=== PATIENT | female | born 1980 | race Caucasian/White ===

== ENCOUNTER 2021-06-07 00:27 | Inpatient (IN) | payer BC ==
[~2021-06-07] VITALS: Ht 157.4 cm; Wt 76.4 kg
[~2021-06-07 00:27] MED LIST: ADV 500/50 INH; AVPAK AZITHROM250 MG PO; DULOXETINE HCL60 MG PO; MOTRIN800 MG PO; PREDNISONE20 MG PO; PREDNISONE50 MG PO; PROAIR HFA0.09 MG/AC INH; VIBRAMYCIN100 MG PO
[2021-06-07 00:37] VITALS: BP 179/86
[2021-06-07 01:29] LABS: HEMATOCRIT 43.2 % (37.0-47.0); MEAN CELL VOLUME 90.2 fl (81.0-99.0); MEAN CORPUSCULAR HGB CONC 32.2 g/dl (33.0-37.0); MEAN PLATELET VOLUME 10.3 fl (9.6-12.3); PLATELET COUNT AUTOMATED 257 10*3/uL (130-400); RED BLOOD COUNT 4.79 10*6/uL (4.10-5.10); RED CELL DISTRI WIDTH 13.5 % (0-14.5); WHITE BLOOD COUNT 16.5 10*3/uL (4.8-10.8)
[2021-06-07 01:32] LABS: MANUAL DIFF REFLEX YES
[2021-06-07 01:47] LABS: ALKALINE PHOSPHATASE 97 U/L (45-117); BUN 7 mg/dl (7-24); CHLORIDE 107 mmol/L (98-107); CREATININE 0.72 mg/dL (0.55-1.02); POTASSIUM 3.4 mmol/L (3.5-5.1); SGOT/AST 23 IU/L (3-35); SGPT/ALT 40 U/L (12-78); SODIUM 139 mmol/L (136-145); TOTAL PROTEIN 7.7 gm/dL (6.4-8.2)
[2021-06-07 01:52] LABS: PLATELET SUFFICIENCY LOW (NORMAL); TOTAL CELLS COUNTED 100 #CELLS
[2021-06-07 04:00] VITALS: BP 137/61
[2021-06-07] MEDS ORDERED: GABAPENTIN800 MG PO (04:06)
[2021-06-07] MEDS ORDERED: CYCLOBENZAPRINE10 MG PO (04:07)
[2021-06-07] MEDS ORDERED: METHADONE HYDRO10 MG PO (04:08)
[2021-06-07] MEDS ORDERED: DICLOFENAC SOD75 MG PO (04:09)
[2021-06-07 08:00] VITALS: BP 134/82
[2021-06-07 12:00] VITALS: BP 116/64
[2021-06-07 15:33] VITALS: BP 122/62
[2021-06-07 20:00] VITALS: BP 132/66; BP 151/87
[2021-06-08] VITALS: BP 134/57; BP 152/87
[2021-06-08 06:32] LABS: MEAN CELL VOLUME 92.2 fl (81.0-99.0); MEAN CORPUSCULAR HGB 29.6 pg (27.0-31.0); MEAN CORPUSCULAR HGB CONC 32.1 g/dl (33.0-37.0); PLATELET COUNT AUTOMATED 266 10*3/uL (130-400); RED BLOOD COUNT 4.12 10*6/uL (4.10-5.10); RED CELL DISTRI WIDTH 14.1 % (0-14.5); WHITE BLOOD COUNT 17.7 10*3/uL (4.8-10.8)
[2021-06-08 06:42] LABS: ALKALINE PHOSPHATASE 89 U/L (45-117); BUN 10 mg/dl (7-24); CHLORIDE 111 mmol/L (98-107); CREATININE 0.51 mg/dL (0.55-1.02); SGOT/AST 28 IU/L (3-35); SGPT/ALT 43 U/L (12-78); SODIUM 139 mmol/L (136-145); TOTAL PROTEIN 6.6 gm/dL (6.4-8.2)
[2021-06-08 07:25] LABS: MANUAL DIFF REFLEX YES
[2021-06-08 07:34] LABS: TOTAL CELLS COUNTED 100 #CELLS
[2021-06-08 07:35] LABS: PLATELET SUFFICIENCY NORMAL (NORMAL); POLYCHROMASIA SLIGHT
[2021-06-08 08:00] VITALS: BP 132/85
[2021-06-08 12:00] VITALS: BP 124/86
[2021-06-08 16:00] VITALS: BP 136/79
[2021-06-08 20:00] VITALS: BP 142/88; BP 146/95
[2021-06-09] VITALS: BP 151/93
[2021-06-09 05:47] LABS: BUN 15 mg/dl (7-24); CHLORIDE 107 mmol/L (98-107); CREATININE 0.41 mg/dL (0.55-1.02); POTASSIUM 4.1 mmol/L (3.5-5.1); SODIUM 138 mmol/L (136-145)
[2021-06-09 05:59] LABS: HEMATOCRIT 37.6 % (37.0-47.0); MEAN CELL VOLUME 93.3 fl (81.0-99.0); MEAN CORPUSCULAR HGB 29.5 pg (27.0-31.0); MEAN CORPUSCULAR HGB CONC 31.6 g/dl (33.0-37.0); MEAN PLATELET VOLUME 10.9 fl (9.6-12.3); PLATELET COUNT AUTOMATED 267 10*3/uL (130-400); RED BLOOD COUNT 4.03 10*6/uL (4.10-5.10); WHITE BLOOD COUNT 12.8 10*3/uL (4.8-10.8)
[2021-06-09 06:03] LABS: MANUAL DIFF REFLEX YES
[2021-06-09 07:08] LABS: PLATELET SUFFICIENCY NORMAL (NORMAL); TOTAL CELLS COUNTED 100 #CELLS
[2021-06-09 08:00] VITALS: BP 146/92
[2021-06-09 12:00] VITALS: BP 150/78
[2021-06-09 16:00] VITALS: BP 150/67
[2021-06-09 20:00] VITALS: BP 147/95
[2021-06-10] VITALS: BP 154/105
[2021-06-10 01:00] VITALS: BP 148/86
[2021-06-10 05:47] LABS: BUN 11 mg/dl (7-24); CHLORIDE 103 mmol/L (98-107); CREATININE 0.53 mg/dL (0.55-1.02); POTASSIUM 3.9 mmol/L (3.5-5.1); SODIUM 136 mmol/L (136-145)
[2021-06-10 06:22] LABS: BASO % 0.3 % (0.0-1.0); HEMATOCRIT 39.4 % (37.0-47.0); LYMPH # 0.8 10*3/uL (1.3-4.4); LYMPH % 7.6 % (27.0-41.0); MEAN CELL VOLUME 90.8 fl (81.0-99.0); MEAN PLATELET VOLUME 10.6 fl (9.6-12.3); MONO # 0.5 10*3/uL (0.1-1.0); MONO % 4.9 % (3.0-9.0); NEUT # 8.7 10*3/uL (2.3-7.9); PLATELET COUNT AUTOMATED 309 10*3/uL (130-400); RED BLOOD COUNT 4.34 10*6/uL (4.10-5.10); RED CELL DISTRI WIDTH 13.2 % (0-14.5); WHITE BLOOD COUNT 10.2 10*3/uL (4.8-10.8)
[2021-06-10 08:00] VITALS: BP 154/88
[2021-06-10 12:00] VITALS: BP 158/97
[2021-06-10 16:00] VITALS: BP 138/85
[2021-06-10 20:00] VITALS: BP 148/90; BP 153/106
[2021-06-11] VITALS: BP 119/72
[2021-06-11 05:45] LABS: MEAN CELL VOLUME 89.2 fl (81.0-99.0); MEAN CORPUSCULAR HGB 28.7 pg (27.0-31.0); MEAN CORPUSCULAR HGB CONC 32.1 g/dl (33.0-37.0); MEAN PLATELET VOLUME 10.2 fl (9.6-12.3); PLATELET COUNT AUTOMATED 364 10*3/uL (130-400); RED BLOOD COUNT 4.71 10*6/uL (4.10-5.10); RED CELL DISTRI WIDTH 13.1 % (0-14.5); WHITE BLOOD COUNT 10.4 10*3/uL (4.8-10.8)
[2021-06-11 05:57] LABS: BUN 14 mg/dl (7-24); CHLORIDE 99 mmol/L (98-107); CREATININE 0.53 mg/dL (0.55-1.02); POTASSIUM 3.9 mmol/L (3.5-5.1); SODIUM 135 mmol/L (136-145)
[2021-06-11 06:22] LABS: MANUAL DIFF REFLEX YES
[2021-06-11 06:59] LABS: PLATELET SUFFICIENCY NORMAL (NORMAL); TOTAL CELLS COUNTED 100 #CELLS
[2021-06-11 08:00] VITALS: BP 138/82
[2021-06-11] MEDS ORDERED: LEVOFLOXACIN750 M2 PO ×3 (11:24→11:52)
[2021-06-11] MEDS ORDERED: PREDNISONE10 MG PO ×3 (11:24→11:52)
[2021-06-11] MEDS ORDERED: Ipratropium Brom3 ML NEB ×3 (11:24→11:52)
[2021-06-11] MEDS ORDERED: HYDR12.5C PO ×3 (11:45→11:52)
[2021-06-11 12:00] VITALS: BP 144/82
== END 2021-06-11 12:34 | disposition home or self-care (01) | DRG 871 ==
LOC: ED 00:27 → EDHOLD 03:17 → 4E 03:17
PROVIDERS: Internal Medicine; ADMIT Internal Medicine; ATTEND Internal Medicine
DX: A41.9 Sepsis, unspecified organism (principal); J18.9 Pneumonia, unspecified organism; J45.41 Moderate persistent asthma with (acute) exacerbation; E87.2 Acidosis; M41.125 Adolescent idiopathic scoliosis, thoracolumbar region; F17.200 Nicotine dependence, unspecified, uncomplicated; E87.6 Hypokalemia; R73.9 Hyperglycemia, unspecified; I10 Essential (primary) hypertension; G89.29 Other chronic pain; Z20.822 Contact with and (suspected) exposure to COVID-19; M54.9 Dorsalgia, unspecified; R65.20 Severe sepsis without septic shock; B34.9 Viral infection, unspecified; Z82.49 Family history of ischemic heart disease and other diseases of the circulatory system; Z90.49 Acquired absence of other specified parts of digestive tract; Z71.6 Tobacco abuse counseling; Z79.899 Other long term (current) drug therapy

== ENCOUNTER → 2021-08-18 | Outpatient (CLI) | payer BC ==
[~2021-08-18] MED LIST changes: +CYCLOBENZAPRINE10 MG PO; +DICLOFENAC SOD75 MG PO; +GABAPENTIN800 MG PO; +HYDR12.5C PO; +Ipratropium Brom3 ML NEB; +LEVOFLOXACIN750 M2 PO; +METHADONE HYDRO10 MG PO; +PREDNISONE10 MG PO
== END | disposition home or self-care (01) ==
LOC: CARD 14:00
PROVIDERS: ATTEND Physician Assistant
DX: I10 Essential (primary) hypertension (principal); R60.0 Localized edema; J45.909 Unspecified asthma, uncomplicated

== ENCOUNTER → 2023-02-16 | Outpatient (CLI) | payer BC | END | disposition home or self-care (01) | LOC: US 08:00 | PROVIDERS: ATTEND Physician Assistant | DX: D27.0 Benign neoplasm of right ovary (principal); Z90.49 Acquired absence of other specified parts of digestive tract ==

== ENCOUNTER → 2023-03-06 | Outpatient (CLI) | payer BC | END | disposition home or self-care (01) | LOC: CT 09:53 | PROVIDERS: ATTEND Internal Medicine | DX: K76.0 Fatty (change of) liver, not elsewhere classified (principal); R91.1 Solitary pulmonary nodule; R59.1 Generalized enlarged lymph nodes; Z90.49 Acquired absence of other specified parts of digestive tract; Z90.710 Acquired absence of both cervix and uterus; N83.9 Noninflammatory disorder of ovary, fallopian tube and broad ligament, unspecified ==

== ENCOUNTER → 2023-08-20 | Outpatient (CLI) | payer BC | END | disposition home or self-care (01) | LOC: US 08-15 16:00 | PROVIDERS: ATTEND Physician Assistant | DX: Z01.818 Encounter for other preprocedural examination (principal); R59.1 Generalized enlarged lymph nodes ==

== ENCOUNTER 2024-04-29 22:01 | Emergency (ER) | payer BC ==
[~2024-04-29] VITALS: Ht 160 cm; Wt 83.5 kg
[~2024-04-29 22:01] MED LIST changes: +AVAPRO75 MG PO; +BACLOFEN5 MG PO; +FUROSEMIDE20 M1 PO; +MONTELUKAST SOD10 MG PO
[2024-04-29 22:56] LABS: BASO % 0.4 % (0.0-1.0); EOS # 0.2 10*3/uL (0.0-0.4); EOS % 5.4 % (1.0-4.0); HEMATOCRIT 37.9 % (37.0-47.0); MEAN CELL VOLUME 89.4 fl (81.0-99.0); MEAN CORPUSCULAR HGB 28.1 pg (27.0-31.0); MEAN CORPUSCULAR HGB CONC 31.4 g/dl (33.0-37.0); MEAN PLATELET VOLUME 9.9 fl (9.6-12.3); MONO # 0.4 10*3/uL (0.1-1.0); MONO % 9.6 % (3.0-9.0); NEUT # 2.7 10*3/uL (2.3-7.9); NEUT % 61.1 % (47.0-73.0); PLATELET COUNT AUTOMATED 215 10*3/uL (130-400); RED BLOOD COUNT 4.24 10*6/uL (4.10-5.10); RED CELL DISTRI WIDTH 13.6 % (0-14.5); WHITE BLOOD COUNT 4.5 10*3/uL (4.8-10.8)
[2024-04-29 23:23] LABS: BUN 6 mg/dl (9-23); CHLORIDE 101 mmol/L (98-107); POTASSIUM 3.8 mmol/L (3.4-5.1)
[2024-04-29] MEDS ORDERED: BUMETANIDE 1 MG/4 ML VIAL IV ONE (23:35)
[2024-04-29] MEDS ORDERED: methylPREDNISolone sod succ 125 MG VIAL IV ONE (23:35)
== END 2024-04-30 01:51 | disposition home or self-care (01) ==
LOC: ED 22:01
PROVIDERS: Internal Medicine
DX: R60.0 Localized edema (principal); R53.83 Other fatigue; F17.200 Nicotine dependence, unspecified, uncomplicated; Z88.1 Allergy status to other antibiotic agents; Z79.899 Other long term (current) drug therapy; Z90.49 Acquired absence of other specified parts of digestive tract